=== PATIENT | male | born 2000 | race Two or more races ===

== ENCOUNTER 2021-12-11 13:50 | Emergency (ER) | payer OTHER ==
[~2021-12-11] VITALS: Ht 190.5 cm; Wt 79.4 kg
[2021-12-11 16:13] VITALS: BP 122/84
== END 2021-12-11 16:18 | disposition home or self-care (01) ==
LOC: ER 13:50
DX: S01.81XA Laceration without foreign body of other part of head, initial encounter (principal); V00.311A Fall from snowboard, initial encounter; Y93.23 Activity, snow (alpine) (downhill) skiing, snowboarding, sledding, tobogganing and snow tubing; Y92.89 Other specified places as the place of occurrence of the external cause; Y99.8 Other external cause status
CPT/HCPCS: 12013; 99282; J2001